=== PATIENT | male | born 2000 | race American Indian/Alaskan Native ===

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

== ENCOUNTER 2019-04-25 06:10 | Emergency (ER) | payer SELFPAY ==
[2019-04-25 06:18] VITALS: BP 155/82
== END 2019-04-25 06:15 | disposition left against medical advice (07) ==
LOC: ED 06:10
DX: E11.65 Type 2 diabetes mellitus with hyperglycemia (principal); Z53.21 Procedure and treatment not carried out due to patient leaving prior to being seen by health care provider
CPT/HCPCS: 82962